=== PATIENT | male | born 2000 | race African-American/Black ===

== ENCOUNTER 2018-01-20 17:55 | Emergency (ER) | payer OTHER ==
[~2018-01-20] VITALS: Ht 175.3 cm; Wt 147.7 kg
[~2018-01-20 17:55] MED LIST: ALBU8HFA IH
[2018-01-20] MEDS: KETOROLAC TROMETHAMINE 60 MG/2 ML VIAL IM ONE (19:59)
[2018-01-20 20:46] VITALS: BP 123/89
== END 2018-01-20 22:34 | disposition home or self-care (01) ==
LOC: EMS 17:57
DX: S13.4XXA Sprain of ligaments of cervical spine, initial encounter (principal); M54.5 Low back pain; M25.512 Pain in left shoulder; J45.909 Unspecified asthma, uncomplicated; I10 Essential (primary) hypertension; V43.52XA Car driver injured in collision with other type car in traffic accident, initial encounter; Y93.89 Activity, other specified; Y92.89 Other specified places as the place of occurrence of the external cause; Y99.8 Other external cause status
CPT/HCPCS: 72040; 96372; 99284; J1885